=== PATIENT | male | born 1970 | race Caucasian/White ===

== ENCOUNTER 2017-11-14 13:12 | Observation (INO) | payer OTHER ==
[~2017-11-14] VITALS: Ht 185.4 cm; Wt 86.2 kg
--- NOTE | 2017-11-14 13:32 | ED PSYCHIATRIC COMPLAINT ---
History of Present Illness General Chief Complaint: ETOH/Drug Related Complaint Stated Complaint: HIGHWATCH CLEARANCE Source: patient Exam Limitations: no limitations Vital Signs & Intake/Output Vital Signs & Intake/Output Vital Signs Date Time Temp Pulse Resp B/P B/P Pulse O2 O2 Flow FiO2 Mean Ox Delivery Rate 11/15 1158 98.5 64 17 172/89 99 07/01 1000 97.9 55 16 160/96 98 Room Air 07/ 0857 64 07/ 0700 97.8 60 18 134/95 07/01 0639 97.8 60 18 134/95 95 Room Air 07/01 0515 98.1 54 18 148/80 07/01 0454 98.1 54 18 148/80 97 Room Air 07/01 0315 97.5 61 16 200/110 07/01 0307 97.5 61 16 200/110 96 Room Air 07/01 0306 97.5 61 16 200/110 07/01 0306 97.5 61 16 200/110 07/01 0123 96.2 55 18 170/110 07/01 0123 96.2 55 18 170/110 97 Room Air 11/14 2137 160/84 11/14 2130 97.9 60 18 160/84 95 Room Air 11/14 2014 67 180/80 11/14 1909 98.0 67 18 180/80 11/14 1521 97.6 75 16 161/99 94 Room Air ED Intake and Output 11/15 0000 11/14 1200 Intake Total 300 Output Total Balance 300 Intake, Oral 300 Patient 190 lb Weight Weight Reported by Patient Measurement Method Allergies Coded Allergies: No Known Allergies (11/14/17) Triage Note: SENT IN BY [facility] FOR MEDICAL CLEARANCE, PT STATES HE DRINKS 1/2 LITER OF VODKA DAILY X A FEW YEARS, HAS STOPPED FOR 4-5 DAYS AT A TIME. DENIES OTHER DRUG USE, SI OR HI. DENIES DT'S. Triage Nurses Notes Reviewed? yes Onset: Gradual Duration: constant Severity: severe Severity Numbers: 10 HPI: Patient is a 47-year-old male WITH PMH HIV, who presents emergency room with concerns of alcohol detox when he states that he's been drinking for "a few years now" where he states that last night he drank very heavily and this morning due to the disappointment of his mother he THEN WANTED TO SEEK inpatient detox rehabilitation from alcohol in which he initially called [facility], THEN [facility] advised patient to present to [place] emergency room for medical clearance. Patient states that he drank "a few swigs" of vodka this morning Patient does smoke tobacco denies any illicit drugs. Denies any history of a ALCOHOL withdrawal seizures or delirium tremens. Denies any visual or auditory hallucinations denies any homicidal or suicidal ideation and denies any current illness. (Hua Love) Reconcile Medications Efavirenz/Emtricitab/Tenofovir (Atripla Tablet) 600 MG-200 MG-300 MG TABLET 1 TAB PO DAILY ANTIVIRAL (Reported) on empty stomach (Hayden CALIX,Juan Cameron) Past History Travel History Traveled to [place] past 21 day No Medical History Any Pertinent Medical History? see below for history Neurological: NONE EENT: NONE Cardiovascular: NONE Respiratory: NONE Gastrointestinal: NONE Hepatic: NONE Renal: NONE Musculoskeletal: NONE Psychiatric: alcohol dependence Endocrine: NONE Surgical History Surgical History: non-contributory Psychosocial History What is your primary language Slovenian Tobacco Use: Current Daily Use Daily Tobacco Use Amount/Type: => 5 Cigarettes daily ETOH Use: alcoholic Illicit Drug Use: denies illicit drug use Family History Hx Contributory? No (Hua Love) Review of Systems Review of Systems Constitutional: Reports: no symptoms. EENTM: Reports: no symptoms. Respiratory: Reports: no symptoms. Cardiovascular: Reports: no symptoms. GI: Reports: no symptoms. Genitourinary: Reports: no symptoms. Musculoskeletal: Reports: no symptoms. Skin: Reports: no symptoms. Neurological/Psychological: Reports: see HPI. Hematologic/Endocrine: Reports: no symptoms. Immunologic/Allergic: Reports: no symptoms. All Other Systems: Reviewed and Negative (Hua Love) Physical Exam Physical Exam General Appearance: no apparent distress, alert, comfortable Head: atraumatic Eyes: Bilateral: normal appearance, PERRL. Ears, Nose, Throat: normal pharynx, normal ENT inspection, hearing grossly normal Neck: normal inspection Respiratory: normal breath sounds, chest non-tender, no respiratory distress Cardiovascular: regular rate/rhythm Neurological/Psychiatric: no motor/sensory deficits, awake, alert, normal mood/ affect, calm, oriented x 3 Appearance/Memory/Insight: appropriate appearance, appropriate insight, denies illness Behavoir/Eye Contact/Speech: cooperative, normal speech, good eye contact Thoughts/Hallucinations: no apparent hallucination Skin: intact, normal color, warm/dry SAD PERSONS Done? patient not suicidal (Hua Love) Progress Differential Diagnosis: drug intoxication, drug overdose, drug withdrawal, electrolyte abnormality, encephalitis, hypoglycemia, hypothyroidism, IC hem/mass /tumor, meningitis Hand-Off Endorsed To: Robson Sharp DO Endorsed Time: 99 Pending: other (Hua Love) Plan of Care: Orders Procedure Date/time Status Heart Healthy Diet 11/[address] in observation 11/15 1747 Active ED Holding Orders 11/15 1747 Active Patient Data 11/15 1747 Active Vital Signs 11/15 1747 Active Code Status 11/15 1747 Active Intake & Output 11/15 1707 Active Current Medications Sig/Toya Start time Last Medication Dose Stop Time Status Admin Clonidine 0.1 MG FOUR TIMES A DAY PRN 11/14 1800 AC 11/14 (Catapres) 2013 Hydroxyzine HCl 25 MG 4 TIMES/DAY PRN 11/14 1800 AC 11/14 (Atarax) 2013 Trazodone HCl 50 MG AT BEDTIME NEED.. 11/14 1800 AC (Desyrel) Laboratory Tests 11/14/171747: Urine Opiates Screen < 100, Methadone Screen < 40, Barbiturate Screen < 60, Ur Phencyclidine Scrn < 6.00, Amphetamines Screen < 100, U Benzodiazepines Scrn < 85, Urine Cocaine Screen < 50, Urine Cannabis Screen < 5.00 Patient upon initial presentation is resting completely at bedside denies any homicide or suicide ideation patient will be holdover in the emergency room for evaluation of alcohol dependency and withdrawal Patient will be placed in ED observation due to alcohol intoxication patient will require continuous monitoring for alcohol withdrawal overnight Initial CIWA was 1 1801- REPEAT CIWA WAS 0 Discussed patient for handoff with Dr. Sharp (Hua Love) (Robson Sharp DO) Departure Departure Disposition: ACUTE REHAB FACILITY Condition: Stable Clinical Impression Primary Impression: Alcohol dependence Referrals: Patient Has No Primary Care Dr (PCP/Family) Departure Forms: Customer Survey General Discharge Information (Hua Love) PA/HAUNTED HISTORY TOUR GUIDE Co-Sign Statement Statement: ED Attending supervision documentation- [X] I saw and evaluated the patient. I have also reviewed all the pertinent lab results and diagnostic results. I agree with the findings and the plan of care as documented in the PA's/HAUNTED HISTORY TOUR GUIDE's documentation. [X] I have reviewed the ED Record and agree with the PA's/HAUNTED HISTORY TOUR GUIDE's documentation. [] Additions or exceptions (if any) to the PAs/HAUNTED HISTORY TOUR GUIDE's note and plan are summarized below: [] (Juan Blake MD) Departure Comments 11/14/17 11:50 PM The patient was signed out to me by Hua Lopez. He is for discharge to [facility] in the a.m. The patient will be will be signed out to Dr. Gonzalez at 7 AM (Robson Sharp DO) Departure Time of Disposition: 1136 (Jhony Gonzalez MD) Critical Care Note Critical Care Note Critical Care Time: 30-74 min (Hua Love) ED Attending Observation Initial Observation Note: I have seen and personally examined WYATT COLE on 11/14/17 at 1749. I agree with the current emergency department documentation. The disposition (admission or discharge) is uncertain at this time, he needs a period of observation for the following reason(s): [Patient has alcohol dependency and is at risk for acute withdrawal. Patient will need close monitoring and following of the CIWA score. It is unsure at this time the patient will require admission to the hospital for alcohol withdrawal or if he will be stable to be discharged to alcohol rehabilitation facility.] The ED Nurse caring for this patient has been personally informed as to what the patient is being observed for. (Juan Blake MD) Observation Discharge: I have reevaluated WYATT COLE on 11/15/17 at 1137. The patient is: (x): Stable for discharge (): To be admitted to Nursing Floor (): To be placed in Observation on Nursing Floor (x): For transfer to other facility The patient was being observed for alcohol dependence As a result of that observation, I have determined patient stable for discharge to [facility]. (Jhony Gonzalez MD) I agree with the current emergency department documentation. The disposition (admission or discharge) is uncertain at this time, he needs a period of observation for the following reason(s): [Patient has alcohol dependency and is at risk for acute withdrawal. Patient will need close monitoring and following of the CIWA score. It is unsure at this time the patient will require admission to the hospital for alcohol withdrawal or if he will be stable to be discharged to alcohol rehabilitation facility.] The ED Nurse caring for this patient has been personally informed as to what the patient is being observed for. (Hayden CALIX,Juan Cameron) Observation Discharge: I have reevaluated WYATT COLE on 11/15/17 at 1137. The patient is: (x): Stable for discharge (): To be admitted to Nursing Floor (): To be placed in Observation on Nursing Floor (x): For transfer to other facility The patient was being observed for alcohol dependence As a result of that observation, I have determined patient stable for discharge to [facility]. (Carlos CALIX,Jhony)
[2017-11-14 14:02] VITALS: BP 166/96
[2017-11-14] MEDS ORDERED: ATRIPLA TABLET1 EACH PO (14:29)
[2017-11-14 14:37] LABS: ABSOLUTE BASOPHIL COUNT 0 /CUMM (0.0-0.2); ABSOLUTE EOSINOPHIL COUNT 0 /CUMM (0.0-0.7); ABSOLUTE GRANULOCYTE CT 2.3 /CUMM (1.4-6.5); ABSOLUTE LYMPH COUNT 1.8 /CUMM (1.2-3.4); ABSOLUTE MONOCYTE COUNT 0.4 /CUMM (0.10-0.60); BASOPHIL % 0.4 % (0.0-2.0); EOSINOPHIL % 0.8 % (0-5); GRANULOCYTE % 50.3 % (42.2-75.2); HEMATOCRIT 41.5 % (42-52); MEAN CORPUSCULAR HGB 33.8 PG (27.0-31.0); MEAN CORPUSCULAR VOLUME 99.3 FL (80.0-94.0); MEAN PLATELET VOLUME 6.8 FL (7.4-10.4); PLATELET COUNT 182 /CUMM (130-400); RBC DISTRIBUTION WIDTH 13.4 % (11.5-14.5); RED BLOOD CELL CT 4.18 /CUMM (4.70-6.10); WHITE BLOOD CELL COUNT 4.6 /CUMM (4.8-10.8)
[2017-11-14 21:37] VITALS: BP 160/84
[2017-11-15 01:23] VITALS: BP 170/110
[2017-11-15 03:15] VITALS: BP 200/110
[2017-11-15 05:15] VITALS: BP 148/80
[2017-11-15 07:00] VITALS: BP 134/95
[2017-11-15 11:58] VITALS: BP 172/89
== END 2017-11-15 12:23 ==
LOC: ERH 13:12 → ERHI 17:48
PROVIDERS: Physician Assistant
DX: F10.20 Alcohol dependence, uncomplicated (principal); Y90.9 Presence of alcohol in blood, level not specified; F17.200 Nicotine dependence, unspecified, uncomplicated; B20 Human immunodeficiency virus [HIV] disease
CPT/HCPCS: 6090; 80307; G0378; G0480; J2930